=== PATIENT | male | born 1985 ===

== ENCOUNTER 2016-11-11 08:23 | Emergency (ER) | payer OTHER ==
--- NOTE | 2016-11-11 09:30 | RAD ---
PROCEDURE: Left Wrist Radiographs. HISTORY: LEFT WRIST PAIN AFTER LIFTING HEAVY OBJECT COMPARISON: None. FINDINGS: BONES: The lunate bone mineralization is abnormal. Mixed sclerosis and cystic changes are present. Osteo necrosis here-, Keinbock's disease needs to be considered. Nondisplaced fractures through the cystic portions of the lunate are not excluded Comparison with prior outside radiographs is suggested JOINTS: Radiocarpal joint space narrowing SOFT TISSUES: Normal. OTHER FINDINGS: 1 mm negative ulnar variance suggested. 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 A chronic fracture through the cystic components are not excluded. If needed, consider MRI or CT of the left wrist .
--- NOTE | 2016-11-11 09:41 | C.PDOC ---
History Of Present Illness 31 y/o male presents to the ED with complains of left wrist pain x3 days. Pt admits to lifting heavy box prior to onset, pain has been persistent, worse with movement of the wrist. Pt denies direct injury, admits to similar pain 1 year ago with same wrist. Pt denies weakness, numbness or any other complaints. Time Seen by Provider: 11/11/16 08:41 Chief Complaint (Nursing): Finger,Hand,&Wrist History Per: Patient History/Exam Limitations: no limitations Onset/Duration Of Symptoms: Days Current Symptoms Are (Timing): Still Present Severity: Mild Recent travel outside of the [place]: No Past Medical History Reviewed: Historical Data, Nursing Documentation, Vital Signs Vital Signs: Last Vital Signs Temp 98.9 F 11/11/16 09:59 Pulse 72 11/11/16 09:59 Resp 16 11/11/16 09:59 BP 133/80 11/11/16 09:59 Pulse Ox 98 11/11/16 09:59 Family History: States: Unknown Family Hx - Social History Hx Alcohol Use: Yes Hx Substance Use: No - Immunization History Hx Influenza Vaccination: No Review Of Systems Except As Marked, All Systems Reviewed And Found Negative. Musculoskeletal: Positive for: Other (left wrist pain) Neurological: Negative for: Weakness, Numbness Physical Exam - Physical Exam Appears: Non-toxic, No Acute Distress Skin: Warm, Dry, No Rash Head: Atraumatic, Normacephalic Chest: Symmetrical Cardiovascular: Rhythm Regular, No Murmur Respiratory: Normal Breath Sounds, No Rales, No Rhonchi, No Wheezing Extremity: Tenderness (diffuse tenderness along midline left wrist, decreased ROM due to pain; normal ROM left elbow and digits), Capillary Refill (<2 seconds ), No Deformity, Other (left wrist mildly swollen) Pulses: Left Radial: Normal Neurological/Psych: Oriented x3, Normal Motor, Normal Sensation ED Course And Treatment O2 Sat by Pulse Oximetry: 99 (ra) Pulse Ox Interpretation: Normal - Other Rad X-Ray, Left Wrist X-Ray: Viewed By Me, Read By Radiologist Interpretation: Accession No. : [id number]. Patient Name / ID : GEORGIA MILAN / [id number]. Exam Date : 11/11/2016 09:01:37 ( Approved ). Study Comment : Sex / Age : M / 31Y. Creator : Viri Lewis V. Dictator : Viri Lewis V. Project Construction Manager : Cash Management Associate : Viri Lewis V. Approver2 : Report Date : 2016 09:28:33. My Comment : . PROCEDURE: Left Wrist Radiographs. . HISTORY: LEFT WRIST PAIN AFTER LIFTING HEAVY OBJECT. COMPARISON: None. FINDINGS: BONES: The lunate bone mineralization is abnormal. Mixed sclerosis and cystic changes are present. Osteo necrosis here-, Keinbock's disease needs to be considered. Nondisplaced fractures through the cystic portions of the lunate are not excluded. Comparison with prior outside radiographs is suggested. JOINTS: Radiocarpal joint space narrowing. SOFT TISSUES: Normal. OTHER FINDINGS: 1 mm negative ulnar variance suggested. 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 A chronic fracture through the cystic components are not excluded. If needed, consider MRI or CT of the left wrist . Progress Note: Plan: XR left wrist, declined pain medications. Apply volar aplint, instructed patient to follow up with hand surgeon. Disposition Counseled Patient/Family Regarding: Studies Performed, Diagnosis, Need For Followup, Rx Given - Disposition Referrals: Brianna Gamez MD [Staff Provider] - [facility] [Outside] [facility] [Outside] Disposition: HOME/ ROUTINE Disposition Time: 10:00 Condition: STABLE Additional Instructions: FOLLOW UP WITH HAND/ORTHOPEDICS WITHIN 1 WEEK USE PAIN MEDICATION NEEDED RETURN TO EMERGENCY ROOM IF SYMPTOMS WORSEN SEGUIMIENTO CON MANO / ORTOPEDIA DENTRO DE 1 SEMANA USE EL MEDICAMENTO DEL DOLOR CIERA SEA NECESARIO DEVUELVA A LA NARCISO DE EMERGENCIA SI LOS SNTOMAS EMPEORARAN Prescriptions: traMADol [Ultram] 50 mg PO BID PRN #15 tab PRN Reason: pain Instructions: Wrist Fracture in Adults (ED) Forms: Work Excuse Print Language: MALAYSIAN - POA Present On Arrival: None - Clinical Impression Clinical Impression: Left lunate fracture - Scribe Statement The provider has reviewed the documentation as recorded by the Scribe Zbigniew Haywood Provider Attestation: All medical record entries made by the Scribe were at my direction and personally dictated by me. I have reviewed the chart and agree that the record accurately reflects my personal performance of the history, physical exam, medical decision making, and the department course for this patient. I have also personally directed, reviewed, and agree with the discharge instructions and disposition.
[2016-11-11 10:00] VITALS: BP 133/80; PULSE 72; RESP 16; TEMP 98.9
[2016-11-11 10:39] VITALS: O2SAT 99
== END 2016-11-11 10:50 | disposition home or self-care (01) ==
LOC: C.ER 08:23
DX: S62.122A Displaced fracture of lunate [semilunar], left wrist, initial encounter for closed fracture (principal); X50.0XXA Overexertion from strenuous movement or load, initial encounter; Y93.89 Activity, other specified; Y92.9 Unspecified place or not applicable